=== PATIENT | male | born 1990 | race Caucasian/White ===

== ENCOUNTER 2019-04-02 11:04 | Emergency (ER) | payer MEDICAID ==
[~2019-04-02] VITALS: Ht 180.3 cm; Wt 100.0 kg
[2019-04-02] MEDS ORDERED: AZITHROMYCIN 500 MG TABLET PO ONE (14:30)
[2019-04-02] MEDS ORDERED: DEXAMETHASONE 10 MG/ML VIAL IM ONE (14:30)
[2019-04-02] MEDS ORDERED: KETOROLAC 60MG/2ML VIAL IM ONE (14:30)
[2019-04-02] MEDS ORDERED: DIPHENHYDRAMINE 25MG CAPSULE PO ONE (14:30)
[2019-04-02 14:33] VITALS: BP 132/91
== END 2019-04-02 15:05 | disposition home or self-care (01) ==
LOC: ER 12:00
DX: R22.0 Localized swelling, mass and lump, head (principal); J02.9 Acute pharyngitis, unspecified; L53.9 Erythematous condition, unspecified
CPT/HCPCS: 96372; 99283; J1100; J1885; Q0163

== ENCOUNTER 2023-02-10 10:55 | Emergency (ER) | payer MEDICAID ==
[~2023-02-10] VITALS: Ht 188 cm; Wt 89.0 kg
[2023-02-10 11:01] VITALS: O2SAT 99
[2023-02-10] MEDS ORDERED: MORPHINE SULFATE 10 MG/ML CPJ IM ONE (11:30)
[2023-02-10] MEDS ORDERED: MORPHINE SULFATE 10 MG/ML CPJ IM NR (13:19)
[2023-02-10 14:00] VITALS: BP 108/82; PULSE 86; RESP 18; TEMP 98.6
== END 2023-02-10 14:30 | disposition home or self-care (01) ==
LOC: ER 11:03
DX: M25.512 Pain in left shoulder (principal)
CPT/HCPCS: 99284; 73200; 73030; J2270

== ENCOUNTER 2024-06-08 08:44 | Emergency (ER) | payer MEDICAID, OTHER ==
[~2024-06-08] VITALS: Ht 180.3 cm; Wt 90.7 kg
[~2024-06-08 08:44] MED LIST: AMOX1TAB16 MT
[2024-06-08 08:49] VITALS: O2SAT 100
[2024-06-08 09:00] VITALS: BP 103/57; PULSE 71; RESP 14; TEMP 36.7; O2SAT 100
== END 2024-06-08 10:18 | disposition left against medical advice (07) ==
LOC: ER 08:44
DX: M25.512 Pain in left shoulder (principal); Z53.21 Procedure and treatment not carried out due to patient leaving prior to being seen by health care provider
CPT/HCPCS: 73030